=== PATIENT | male | born 1970 | race Caucasian/White ===

== ENCOUNTER → 2020-05-25 | Outpatient (CLI) | payer OTHER ==
[~2020-05-25] MED LIST: FLEXERIL 10 MG PO; NABUMETONE500 MG PO; TORADOL60 MG IM; VOLTAREM 50 MG PO
== END | disposition home or self-care (01) ==
LOC: PPH VACUNA 08:00
DX: Z23 Encounter for immunization (principal)

== ENCOUNTER 2021-06-22 08:00 | Outpatient (CLI) | payer OTHER | END 2021-06-22 08:30 | disposition home or self-care (01) | LOC: PPH VACUNA 08:00 | PROVIDERS: ATTEND Emergency Medicine Pediatric Emergency Medicine | DX: Z23 Encounter for immunization (principal) ==

== ENCOUNTER 2022-01-06 06:18 | Outpatient (CLI) | payer OTHER | END 2022-01-06 06:43 | disposition home or self-care (01) | LOC: LAB 06:18 | PROVIDERS: ATTEND General Practice | DX: E78.5 Hyperlipidemia, unspecified (principal); E55.9 Vitamin D deficiency, unspecified; N39.0 Urinary tract infection, site not specified; R42 Dizziness and giddiness; Z12.5 Encounter for screening for malignant neoplasm of prostate; R10.9 Unspecified abdominal pain; R10.2 Pelvic and perineal pain; Z00.00 Encounter for general adult medical examination without abnormal findings ==

== ENCOUNTER 2022-02-02 07:19 | Outpatient (CLI) | payer OTHER | END 2022-02-02 07:22 | disposition home or self-care (01) | LOC: NUCLEAR 07:19 | PROVIDERS: ATTEND General Practice | DX: I83.893 Varicose veins of bilateral lower extremities with other complications (principal); M79.604 Pain in right leg; R06.00 Dyspnea, unspecified ==

== ENCOUNTER 2022-05-03 13:01 | Outpatient (CLI) | payer OTHER | END 2022-05-03 13:06 | disposition home or self-care (01) | LOC: PPH VACUNA 13:01 | PROVIDERS: ATTEND Emergency Medicine Pediatric Emergency Medicine | DX: Z23 Encounter for immunization (principal) ==

== ENCOUNTER 2023-01-29 06:40 | Outpatient (CLI) | payer OTHER | END 2023-01-29 06:41 | disposition home or self-care (01) | LOC: LAB 06:40 | PROVIDERS: ATTEND Urology | DX: N52.9 Male erectile dysfunction, unspecified (principal); E29.1 Testicular hypofunction; N40.0 Benign prostatic hyperplasia without lower urinary tract symptoms ==

== ENCOUNTER 2024-06-25 09:00 | Outpatient (CLI) | payer OTHER | END 2024-06-25 09:15 | disposition home or self-care (01) | LOC: PPH VACUNA 09:00 | PROVIDERS: ATTEND Emergency Medicine Pediatric Emergency Medicine | DX: Z23 Encounter for immunization (principal) ==

== ENCOUNTER 2025-06-05 11:10 | Outpatient (CLI) | payer OTHER | END 2025-06-05 11:20 | disposition home or self-care (01) | LOC: PPH VACUNA 11:10 | PROVIDERS: ATTEND Emergency Medicine Pediatric Emergency Medicine | DX: Z23 Encounter for immunization (principal) ==